=== PATIENT | male | born 2000 | race African-American/Black ===

== ENCOUNTER 2022-03-18 19:54 | Emergency (ER) | payer OTHER ==
[~2022-03-18] VITALS: Ht 165.1 cm; Wt 52.2 kg
[2022-03-19 03:36] LABS: PLATELET COUNT 230 K/uL (142-355)
[2022-03-19 07:40] VITALS: BP 104/56; TEMP 97.8
== END 2022-03-19 08:35 | disposition short-term general hospital (02) ==
LOC: ED 19:54
PROVIDERS: Family Medicine
DX: J98.2 Interstitial emphysema (principal); R07.89 Other chest pain; R13.19 Other dysphagia; F17.210 Nicotine dependence, cigarettes, uncomplicated; Z11.52 Encounter for screening for COVID-19
CPT/HCPCS: 80053; 85027; 87635; 87651; 96360; 96361; 96375; 99284; J0696; J1885; U0003

== ENCOUNTER 2022-03-24 01:44 | Emergency (ER) | payer OTHER ==
[~2022-03-24] VITALS: Ht 165.1 cm; Wt 52.2 kg
[2022-03-24 01:50] VITALS: BP 128/78; TEMP 97.7
[2022-03-24 02:40] LABS: PLATELET COUNT 225 K/uL (142-355)
[2022-03-24 02:49] LABS: POTASSIUM 3.4 mmol/L (3.6-5.2)
[2022-03-24 03:02] LABS: PARTIAL THROMBOPLASTIN TIME 25.4 SECONDS (24.5-33.6)
[2022-03-24] MEDS ORDERED: MOBIC7.5 M1 PO (03:58)
== END 2022-03-24 04:57 | disposition home or self-care (01) ==
LOC: ED 01:44
PROVIDERS: Emergency Medicine
DX: I31.9 Disease of pericardium, unspecified (principal)
CPT/HCPCS: 80053; 82550; 84484; 85027; 85379; 85610; 85730; 93005; 96374; 99282; J1885

== ENCOUNTER 2022-04-11 00:57 | Emergency (ER) | payer OTHER ==
[~2022-04-11] VITALS: Ht 165.1 cm; Wt 47.6 kg
[2022-04-11 00:57] VITALS: TEMP 98.7
[~2022-04-11 00:57] MED LIST: MOBIC7.5 M1 PO
[2022-04-11 02:40] LABS: PLATELET COUNT 243 K/uL (142-355); POTASSIUM 3.6 mmol/L (3.6-5.2)
[2022-04-11 05:50] VITALS: BP 114/71
== END 2022-04-11 05:50 | disposition home or self-care (01) ==
LOC: ED 00:57
PROVIDERS: Emergency Medicine Emergency Medical Services
DX: J02.9 Acute pharyngitis, unspecified (principal)
CPT/HCPCS: 36415; 80048; 84484; 85027; 87651; 93005; 96360; 96365; 99284; J0696; Q9963